=== PATIENT | female | born 1955 | race Caucasian/White ===

== ENCOUNTER → 2017-05-02 | Outpatient (CLI) | payer MEDICARE, MEDICAID ==
[~2017-05-02] MED LIST: ACETAMINOPHEN325 MG PO; COLACE100 MG PO; DULCOLAX10 MG R; EFFEXOR XR150 MG PO; GLUCAGON/GLUCAGE1 MG IM; GLUCOPHAGE500 MG PO; GLUCOSE GEL38 GM PO; GLUCOSE33 GM PO; HYDROCHLOROTHIA25 MG PO; HYDROCODON-ACE1 EAC4 PO; LANTUS (IN100 UNIT/M SUB-Q; LEVOTHROID(SYN75 MCG PO; LOPRESSOR25 MG PO; MELATONIN5 M2 PO; MILK OF MA400 MG/5 M; MILK OF MA400 MG/5 M PO; NOVOLOG100 UNIT/M SUB-Q; PLAVIX75 MG PO; PRINIVIL OR ZES10 MG PO; TRAZODONE HCL50 MG PO; TYLENOL325 MG PO; ZOCOR40 MG PO
== END | disposition disaster alternative care site (69) ==
LOC: GBCOE 04-27 14:00
DX: Z12.31 Encounter for screening mammogram for malignant neoplasm of breast (principal)
CPT/HCPCS: G0202